=== PATIENT | male | born 1960 | race Caucasian/White ===

== ENCOUNTER 2017-01-03 13:49 | Emergency (ER) | payer OTHER ==
[~2017-01-03] VITALS: Ht 177.8 cm; Wt 95.3 kg
[2017-01-03 13:50] VITALS: BP 129/76
--- NOTE | 2017-01-03 14:54 | RAD ---
Three-view right hand radiographs 01/03/2017 Clinical history: Patient was bit by a bug days ago with swelling and tenderness since. PA, lateral and oblique digital radiographs of the right hand were obtained. Soft tissue swelling is seen along the ulnar soft tissues of the right hand. No radiopaque foreign body is seen. No fracture or dislocation is seen. There is no radiographic evidence of osteomyelitis. Impression: Right hand soft tissue swelling as outlined above. No acute osseous abnormality is seen.
[2017-01-03] MEDS ORDERED: CLIN150C14 PO (15:07)
--- NOTE | 2017-01-03 15:07 | PHYS DOC ---
Past History Past Medical History: Diabetes Smoking: Non-smoker Alcohol Use: Occasionally Adult General Chief Complaint Chief Complaint: HAND PROBLEM HPI HPI Patient is a 56 year old male who presents with 2 days of pain and swelling to the right hand no trauma he did have an insect bite to the right low lateral ulnar aspect of the hand and he felt it happened and there is no stinger. Since then has been itching and painful and now his hand swollen. No fever no redness to the skin other than a small area with a bite occurred. Denies fever. Review of Systems Review of Systems Constitutional: Denies fever or chills [] Eyes: Denies change in visual acuity, redness, or eye pain [] HENT: Denies nasal congestion or sore throat [] Respiratory: Denies cough or shortness of breath [] Cardiovascular: No additional information not addressed in HPI [] GI: Denies abdominal pain, nausea, vomiting, bloody stools or diarrhea [] : Denies dysuria or hematuria [] Musculoskeletal: Denies back pain or joint pain [] Integument: Denies rash or skin lesions [] Neurologic: Denies headache, focal weakness or sensory changes [] Endocrine: Denies polyuria or polydipsia [] Allergies Allergies Allergies Coded Allergies Type Severity Reaction Last Updated Verified No Known Drug Allergies 01/03/17 No Physical Exam Physical Exam Constitutional: Well developed, well nourished, no acute distress, non-toxic appearance. [] HENT: Normocephalic, atraumatic, bilateral external ears normal, oropharynx moist, no oral exudates, nose normal. [] Eyes: PERRLA, EOMI, conjunctiva normal, no discharge. [] Neck: Normal range of motion, no tenderness, supple, no stridor. [] Cardiovascular:Heart rate regular rhythm, no murmur [] Lungs & Thorax: Bilateral breath sounds clear to auscultation [] Abdomen: Bowel sounds normal, soft, no tenderness, no masses, no pulsatile masses. [] Skin: Warm, dry, no erythema, no rash. [] Back: No tenderness, no CVA tenderness. [] Extremities: No tenderness, no cyanosis, no clubbing, ROM intact, no edema. [] Neurologic: Alert and oriented X 3, normal motor function, normal sensory function, no focal deficits noted. [] Psychologic: Affect normal, judgement normal, mood normal. [] Current Patient Data Lab Results Laboratory Tests Test 01/03/17 14:48 Glucose (Fingerstick) 152 mg/dL (70-99) H EKG EKG [] Radiology/Procedures Radiology/Procedures Right hand negative except for soft tissue swelling per radiology no foreign body seen [] Course & Med Decision Making Course & Med Decision Making Pertinent Labs and Imaging studies reviewed. (See chart for details) [] Dragon Disclaimer Dragon Disclaimer This chart was dictated in whole or in part using Voice Recognition software in a busy, high-work load, and often noisy Emergency Department environment. It may contain unintended and wholly unrecognized errors or omissions. Departure Departure: Impression: Primary Impression: Infected insect bite of right hand Disposition: 01 HOME, SELF-CARE Condition: STABLE Patient Instructions: Insect Bite, [id number], Skin Infections Additional Instructions: Ice and elevate the hand. Take Benadryl when necessary. Prescription for antibiotics Scripts Clindamycin Hcl (CLINDAMYCIN HCL) 150 Mg Capsule 2 CAP PO QID for 7 Days, #56 CAP 0 Refills Prov: SANTOSH CONTEH MD 01/03/17 SANTOSH CONTEH MD Jan 03, 2017 15:07
== END 2017-01-04 15:23 | disposition home or self-care (01) ==
LOC: ER 13:49
DX: S60.561A Insect bite (nonvenomous) of right hand, initial encounter (principal); W57.XXXA Bitten or stung by nonvenomous insect and other nonvenomous arthropods, initial encounter; Y93.89 Activity, other specified; Y99.8 Other external cause status; Y92.89 Other specified places as the place of occurrence of the external cause; E11.9 Type 2 diabetes mellitus without complications
CPT/HCPCS: 73130; 82947; 99284-25